=== PATIENT | female | born 1930 | race Caucasian/White ===

== ENCOUNTER 2018-11-23 19:51 | Emergency (ER) | payer OTHER ==
[~2018-11-23] VITALS: Ht 165.1 cm; Wt 74.8 kg
--- NOTE | ~2018-11-23 | EKG ---
[address] [employer] [place] [place] [address] ELECTROCARDIOGRAM REPORT Name: YAMILETHSHERMAN B Room [facility] [id number] ������������������ Admission: 11/23/18 ������������������ Attend Phys: Discharge: 11/23/18 ������������������ Date of : 32 Report #: [id number] ����������������������������������������������������������������� [id number] THIS REPORT FOR: //name// [facility] ED Test Date: 2018-11-23 Test Time: 20:12:14 Pat Name: SHERMAN CARSON Department: Room: Gender: F Quality Control Scientist: sudhakar : 1930 Requested By: Bassam Carlson Order Number: [id number] MD: Measurements Intervals [place] Rate: 69 P: 45 MD: 181 QRS: -6 QRSD: 97 T: 6 QT: 437 QTc: 469 Interpretive Statements Sinus rhythm Atrial premature complexes Nonspecific ST-T wave changes Baseline artifact and wander Leftward axis Compared to ECG 11/29/2009 13:54:54 Atrial premature complex(es) now present Electronically Signed On 11-24-2018 18:49:22 CDT by Norris Warner [email or web address] ��������������������������������������������� ���������������������������������������� By: ��������������������������������������������� 11 11 Epiphany EpiphanyMD /HUY
--- NOTE | ~2018-11-23 | EKG ---
[address] [place] [address] ELECTROCARDIOGRAM REPORT Name: SHERMAN CARSON Room #: [facility]P [facility]EREvan[facility] [id number] ������������������ Admission: 11/23/18 ������������������ Attend Phys: Discharge: 11/23/18 ������������������ Date of : 32 Report #: [id number] ����������������������������������������������������������������� [id number] THIS REPORT FOR: //name// [facility] ED Test Date: 2018-11-23 Test Time: 20:12:14 Pat Name: SHERMAN CARSON Department: Room: Gender: F Furniture Salesperson: sudhakar : 1930 Requested By: Bassam Carlson Order Number: [id number] MD: Norris Warner Measurements Intervals [place] Rate: 69 P: 45 [place]: 181 QRS: -6 QRSD: 97 T: 6 QT: 437 QTc: 469 Interpretive Statements Sinus rhythm Atrial premature complexes Nonspecific ST-T wave changes Baseline artifact and wander Leftward axis Compared to ECG 11/29/2009 13:54:54 Atrial premature complex(es) now present Electronically Signed On 11-24-2018 18:49:22 CDT by Norris Warner [email or web address] ��������������������������������������������� ���������������������������������������� By: ��������������������������������������������� 11 11 Norris Warner MD /EPI
[~2018-11-23 19:51] MED LIST: ADULT LOW DOSE81 MG PO; METFORMIN 500500 MG PO; PRILOSEC 20 MG20 MG PO; PROTONIX 20 MG20 M1 PO; ZOCOR40 MG PO
[2018-11-23 20:35] VITALS: BP 163/83
--- NOTE | 2018-12-06 17:13 | EKG ---
[address] [address] ELECTROCARDIOGRAM REPORT Name: SAMSONPATOSHERMAN Room [facility]P [facility] [id number] ������������������ Admission: 11/23/18 ������������������ Attend Phys: Discharge: 11/23/18 ������������������ Date of : 32 Report #: [id number] ����������������������������������������������������������������� [id number] THIS REPORT FOR: //name// [facility] ED Test Date: 2018-11-23 Test Time: 20:12:14 Pat Name: SHERMAN CARSON Department: Room: Gender: F Dance Entertainer: sudhakar : 1930 Requested By: Bassam Carlson Order Number: [id number] MD: David Easton Measurements Intervals [place] Rate: 69 P: 45 [place]: 181 QRS: -6 QRSD: 97 T: 6 QT: 437 QTc: 469 Interpretive Statements Sinus rhythm Atrial premature complexes Nonspecific ST-T wave changes Baseline artifact and wander Leftward axis Compared to ECG 11/29/2009 13:54:54 Atrial premature complex(es) now present Electronically Signed On 11-24-2018 18:49:22 CDT by Norris Warner Electronically Signed On 12-06-2018 17:13:04 CDT by David Easton [email or web address] ��������������������������������������������� <ELECTRONICALLY SIGNED> ���������������������������������������� By: David Easton MD ��������������������������������������������� 12/06/18 1713 11 11 David Easton MD /EPI
== END 2018-11-23 20:35 | disposition home or self-care (01) ==
LOC: ER 19:51
DX: I10 Essential (primary) hypertension (principal); M19.90 Unspecified osteoarthritis, unspecified site; J44.9 Chronic obstructive pulmonary disease, unspecified; F17.210 Nicotine dependence, cigarettes, uncomplicated; Z90.710 Acquired absence of both cervix and uterus; Z95.1 Presence of aortocoronary bypass graft